=== PATIENT | male | born 1935 | race Caucasian/White ===

== ENCOUNTER 2020-02-19 14:37 | Inpatient (IN) | payer MEDICAID, MEDICARE ==
[~2020-02-19] VITALS: Ht 165.1 cm; Wt 89.4 kg
[2020-02-19] MEDS ORDERED: ROSU20TA2 PO (14:48)
[2020-02-19] MEDS ORDERED: LEVO125T8 PO (14:48)
[2020-02-19] MEDS ORDERED: METO-357 PO (14:48)
[2020-02-19] MEDS ORDERED: HYDR12.517 PO (14:48)
[2020-02-19] MEDS ORDERED: FINA5TAB11 PO (14:48)
[2020-02-19] MEDS ORDERED: ESCI10TA PO (14:48)
[2020-02-19] MEDS ORDERED: TAMS-3 PO (14:48)
[2020-02-19] MEDS ORDERED: ALLO300T2 PO (14:48)
[2020-02-19] MEDS ORDERED: BENA40TA8 PO (14:48)
[2020-02-19] MEDS ORDERED: CLOP75TA15 PO (14:48)
--- NOTE | 2020-02-19 15:01 | NUR ---
PT IS IN ROOM #1A. DR ANGUIANO EVALUATED THE PT.
[2020-02-19 15:07] LABS: BASOPHILS # (AUTO) 0.1 K/uL (0.0-8.0); EOSINOPHILS # (AUTO) 0.1 K/uL (0.0-0.7); EOSINOPHILS % (AUTO) 0.9 % (0.0-7.0); HEMOGLOBIN 11.5 g/dL (12.5-16.3); LYMPHOCYTES # (AUTO) 2.6 K/uL (20.0-40.0); LYMPHOCYTES % (AUTO) 25.9 % (20.5-51.5); MEAN CORPUSCULAR HEMOGLOBIN 32.1 uug (23.8-33.4); MEAN CORPUSCULAR HGB CONC 34 g/dL (32.5-36.3); MONOCYTES # (AUTO) 0.9 K/uL (2.0-10.0); MONOCYTES % (AUTO) 8.9 % (0.0-11.0); NEUTROPHILS # (AUTO) 6.3 K/uL (1.8-8.9); NEUTROPHILS % (AUTO) 63.3 % (38.5-71.5); PLATELET COUNT (AUTO) 178 K/uL (152-348); RED BLOOD CELL COUNT(AUTO) 3.58 MIL/uL (4.06-5.63)
[2020-02-19 15:14] LABS: CARBON DIOXIDE 28 mmol/L (21-32); CHLORIDE 100 mmol/L (98-107); CREATININE 1.5 mg/dL (0.6-1.3); GLUCOSE 153 mg/dL (74-106); UREA NITROGEN, BLOOD 32 mg/dL (7-18)
[2020-02-19 15:27] LABS: ALANINE AMINOTRANSFERASE 10 U/L (16-63); ALKALINE PHOSPHATASE 58 U/L (50-136); ASPARTATE AMINOTRANSFERASE 14 U/L (15-37); BILIRUBIN,DIRECT 0.1 mg/dL (0.0-0.2); BILIRUBIN,TOTAL 0.5 mg/dL (0.2-1.0); TOTAL PROTEIN, SERUM 7.3 g/dL (6.4-8.2)
--- NOTE | 2020-02-19 19:01 | NUR ---
report was given to night clerk auditor rn.
--- NOTE | 2020-02-19 20:20 | NUR ---
vs taken before ending the patient to the floor , 158/64, HR 88. 97 % ON RA , 21 RR
--- NOTE | 2020-02-19 20:20 | NUR ---
report given to jorge , joanne [id number] , belonging sent to the floor , report , given about medications given and radiology done and results and history , awake , oriented , transferred via stretcher , enies distress
[2020-02-19] MEDS ORDERED: ENOXAPARIN SODIUM 100 MG/ML DISP.SYRIN SQ ONE (20:28)
[2020-02-19] MEDS ORDERED: ENOXAPARIN SODIUM 80 MG/0.8 ML DISP.SYRIN SQ ONE (20:30)
[2020-02-19] MEDS ORDERED: ZOLPIDEM 5 MG TABLET PO PRN (21:15)
[2020-02-19] MEDS ORDERED: ONDANSETRON 4 MG/2 ML VIAL IV PRN (21:15)
[2020-02-19] MEDS ORDERED: ACETAMINOPHEN 325 MG TABLET PO PRN (21:15)
[2020-02-19] MEDS ORDERED: Z GUARD REMEDY PASTE 57 GM TUBE TOP PRN (21:15)
[2020-02-19 21:17] VITALS: BP 184/73
--- NOTE | 2020-02-19 21:34 | NUR ---
receive orders from dr. draper to start benazepril tonight. patient BP 185/[address] draper. Addendum: 02/20/20 at 0406 by NERY SANFORD RN orders to schedule benazepril at night time daily to follow patient home medication schedule.
[2020-02-19] MEDS ORDERED: BENAZEPRIL HCL 20 MG TABLET PO SCH (21:45)
[2020-02-19] MEDS: IV NS 1000 ML 1,000 ML IV PRN (21:49)
--- NOTE | 2020-02-19 22:44 | NUR ---
received order from dr. draper to schedule following home medications medications at night time and to start tonight: Finasteride, levothyroxine, metoprolol, crestor converted to atorvastatin, and flomax. patient to received new order of medication for colace 250 mg by mouth night daily and miralax 17g by mouth daily PRN.
[2020-02-19] MEDS ORDERED: FINASTERIDE 5 MG TABLET PO SCH (22:45)
[2020-02-19] MEDS ORDERED: MIRALAX 17 GM POWD.PACK PO PRN (22:45)
[2020-02-19] MEDS ORDERED: LEVOTHYROXINE SODIUM 125 MCG TABLET PO SCH (22:45)
[2020-02-19] MEDS ORDERED: ATORVASTATIN 40 MG TABLET PO SCH (22:45)
[2020-02-19] MEDS ORDERED: TAMSULOSIN HCL 0.4 MG CAP.SR.24H PO SCH (22:45)
[2020-02-19] MEDS ORDERED: DOCUSATE SODIUM 250 MG CAPSULE PO SCH (22:45)
[2020-02-19] MEDS: HYDROCODONE/APAP 5-325MG TABLET PO PRN (23:23)
--- NOTE | 2020-02-20 00:07 | NUR ---
received orders from dr. draper to discontinue lexapro. patient reported that he no longer takes the medication.
[2020-02-20 00:48] VITALS: BP 143/54
[2020-02-20 05:31] VITALS: BP 130/51
[2020-02-20] MEDS: IV NS 1000 ML 1,000 ML IV PRN (06:03)
--- NOTE | 2020-02-20 06:18 | NUR ---
patient slept throughout the night after administration of Ambien per patient request. [id number]. admissions process complete. belongings list completed. ID band on. LFA PIV intact and patent IVF running. gait unsteady and urinal at bedside. on RA. NSR on tele monitor. skin intact. c/o of pain on left arm throughout the night. administered norco and tylenol without any ASE. consent form signed and placed in folder for nuclear medicine study ordered by Dr. murillo in ER. all needs met and attended to. safety precautions in place and call light within reach. will continue to monitor and endorse to morning nurse.
[2020-02-20] MEDS ORDERED: PANTOPRAZOLE SODIUM 40 MG TABLET.DR PO SCH (07:00)
[2020-02-20] MEDS ORDERED: LEVOTHYROXINE SODIUM 125 MCG TABLET PO SCH ×4 (07:00→21:00)
[2020-02-20 07:01] LABS: BASOPHILS % (AUTO) 0.4 % (0.0-2.0); EOSINOPHILS # (AUTO) 0.1 K/uL (0.0-0.7); HEMATOCRIT 34.4 % (36.7-47.1); HEMOGLOBIN 11.6 g/dL (12.5-16.3); LYMPHOCYTES # (AUTO) 2.2 K/uL (20.0-40.0); LYMPHOCYTES % (AUTO) 25.3 % (20.5-51.5); MEAN CORPUSCULAR HEMOGLOBIN 32.1 uug (23.8-33.4); MEAN CORPUSCULAR HGB CONC 34 g/dL (32.5-36.3); MEAN CORPUSCULAR VOLUME 94.9 fL (73.0-96.2); MONOCYTES # (AUTO) 0.9 K/uL (2.0-10.0); MONOCYTES % (AUTO) 10.4 % (0.0-11.0); NEUTROPHILS # (AUTO) 5.5 K/uL (1.8-8.9); NEUTROPHILS % (AUTO) 62.9 % (38.5-71.5); PLATELET COUNT (AUTO) 166 K/uL (152-348); RED BLOOD CELL COUNT(AUTO) 3.62 MIL/uL (4.06-5.63); WHITE BLOOD COUNT (AUTO) 8.7 K/uL (3.6-10.2)
[2020-02-20] MEDS ORDERED: MIRALAX 17 GM POWD.PACK PO PRN (07:15)
--- NOTE | 2020-02-20 07:15 | NUR ---
Received report from shift leader nurse, patient in bed awake, no distress noted at this time. Bed in low position, side rails upx2, bed alarm set. IV fluids infusing, patient is sinus rhythm on the monitor.
[2020-02-20 07:18] LABS: THYROID STIMULATING HORMONE 2.215 mIU/mL (0.358-3.740)
[2020-02-20 07:43] LABS: ALKALINE PHOSPHATASE 63 U/L (50-136); ASPARTATE AMINOTRANSFERASE 15 U/L (15-37); BILIRUBIN,TOTAL 0.6 mg/dL (0.2-1.0); CARBON DIOXIDE 29 mmol/L (21-32); CHLORIDE 102 mmol/L (98-107); CHOLESTEROL 113 mg/dL (<200); CREATININE 1.5 mg/dL (0.6-1.3); GLUCOSE 125 mg/dL (74-106); HDL CHOLESTEROL 36 mg/dL (40-60); MAGNESIUM 1.7 mg/dL (1.8-2.4); PHOSPHOROUS 3.6 mg/dL (2.5-4.9); TOTAL PROTEIN, SERUM 7.3 g/dL (6.4-8.2); TRIGLYCERIDES 126 MG/DL (30-150); UREA NITROGEN, BLOOD 31 mg/dL (7-18)
[2020-02-20 07:44] LABS: ALANINE AMINOTRANSFERASE 6 U/L (16-63)
[2020-02-20] MEDS: HYDROCODONE/APAP 5-325MG TABLET PO PRN ×2 (08:35→13:45)
[2020-02-20] MEDS ORDERED: TAMSULOSIN HCL 0.4 MG CAP.SR.24H PO SCH ×2 (09:00→21:00)
[2020-02-20] MEDS ORDERED: ENOXAPARIN SODIUM 80 MG/0.8 ML DISP.SYRIN SQ SCH (09:00)
[2020-02-20] MEDS ORDERED: ESCITALOPRAM OXALATE 10 MG TABLET PO SCH (09:00)
[2020-02-20] MEDS ORDERED: HYDROCHLOROTHIAZIDE 12.5 MG CAPSULE PO SCH (09:00)
[2020-02-20] MEDS ORDERED: BENAZEPRIL HCL 20 MG TABLET PO SCH ×2 (09:00→21:00)
[2020-02-20] MEDS ORDERED: FINASTERIDE 5 MG TABLET PO SCH ×2 (09:00→21:00)
[2020-02-20] MEDS ORDERED: ALLOPURINOL 300 MG TABLET PO SCH (09:00)
[2020-02-20] MEDS ORDERED: METOPROLOL SUCCINATE XL 50 MG TAB.SR.24H PO SCH (09:00)
[2020-02-20 11:30] VITALS: BP 126/55
[2020-02-20] MEDS ORDERED: MAGNESIUM SULFATE/D5W 100 ML IV SCH (12:15)
--- NOTE | 2020-02-20 13:00 | NUR ---
Discussed radiology concern about creatinine 1.5 with Hat Conditioner and Machine Cage Maker. They both that the benefits outweigh the risks to the study.
[2020-02-20] MEDS ORDERED: IOHEXOL 350 100 ML INFUS..BTL ONE (13:43)
[2020-02-20] MEDS ORDERED: IV NORMAL SALINE 250 ML IV ONE (13:43)
[2020-02-20] MEDS ORDERED: SWABABLE VALVE TRANSFER SET EA MC ONE (13:43)
[2020-02-20] MEDS ORDERED: HYDROCORTISONE SOD SUCCINATE 100 MG/2 ML VIAL IV ONE (13:45)
[2020-02-20] MEDS ORDERED: ASPIRIN 81 MG TAB.CHEW PO SCH (13:45)
[2020-02-20 16:00] VITALS: BP 116/55
--- NOTE | 2020-02-20 16:00 | NUR ---
Patient taken to CT scan.
--- NOTE | 2020-02-20 18:54 | NUR ---
Patient has become agitated and has started asking about leaving. He is restless and continually asking for journeyman powerhouse operator and complaining that only one journeyman powerhouse operator is here and he isn't even here. Patient attempting to get dressed independently and asking for IV to be removed so he can leave. Informed patient that leaving now could be detrimental to his health and he asked for his records. Patient was informed that if he leaves AMA he would be able to obtain records from Medical records on Saturday.
--- NOTE | 2020-02-20 19:30 | NUR ---
Received patient sitting on the side of the bed. No signs of acute distress. Patient is anxious, restless, and eager to leave. Patient attempting to pull out IV. Educated patient on risks of leaving AMA, patient agreed and continued to demand to leave.
[2020-02-20 20:00] VITALS: BP 140/68
--- NOTE | 2020-02-20 20:13 | NUR ---
Dr. Leonardo made aware and patient signed paperwork to leave AMA. Patient Daughter provided transportation home.
[2020-02-20] MEDS ORDERED: ATORVASTATIN 40 MG TABLET PO SCH ×2 (21:00)
--- NOTE | 2020-02-21 04:24 | NUR ---
Attempted to fill out AMA incident report. Unable to access page on multiple computers. Continuously received the "Can't reach this page" notice.
[2020-03-22] MEDS ORDERED: LEVOTHYROXINE SODIUM 125 MCG TABLET PO SCH (21:00)
== END 2020-02-20 20:30 | disposition left against medical advice (07) | DRG 302 ==
LOC: ER 14:37 → TELE3 20:54
PROVIDERS: ADMIT Hospitalist; ATTEND Hospitalist
DX: I25.10 Atherosclerotic heart disease of native coronary artery without angina pectoris (principal); N17.0 Acute kidney failure with tubular necrosis; N25.81 Secondary hyperparathyroidism of renal origin; E03.9 Hypothyroidism, unspecified; E83.42 Hypomagnesemia; E78.5 Hyperlipidemia, unspecified; N18.2 Chronic kidney disease, stage 2 (mild); Z98.61 Coronary angioplasty status; Z95.2 Presence of prosthetic heart valve; Z91.041 Radiographic dye allergy status; N40.0 Benign prostatic hyperplasia without lower urinary tract symptoms; F32.9 Major depressive disorder, single episode, unspecified; E11.22 Type 2 diabetes mellitus with diabetic chronic kidney disease; M10.9 Gout, unspecified; E66.9 Obesity, unspecified; Z68.32 Body mass index [BMI] 32.0-32.9, adult; I12.9 Hypertensive chronic kidney disease with stage 1 through stage 4 chronic kidney disease, or unspecified chronic kidney disease; H91.90 Unspecified hearing loss, unspecified ear; Z79.890 Hormone replacement therapy
CPT/HCPCS: 36415; 70030-TC; 71045; 71275; 83735; 84100; 84443; 85025; 85730; 93005; 93307; G0378; J1650; J1720; J3475; J7030; J7050; Q9967